=== PATIENT | female | born 1945 | race Caucasian/White ===

== ENCOUNTER 2016-11-17 18:20 | Emergency (ER) | payer MEDICARE, OTHER | END 2016-11-17 23:17 | disposition home or self-care (01) | LOC: ER 18:20 | DX: M54.40 Lumbago with sciatica, unspecified side (principal); Z88.1 Allergy status to other antibiotic agents; Z91.013 Allergy to seafood; Z79.899 Other long term (current) drug therapy; Z79.82 Long term (current) use of aspirin; Z79.84 Long term (current) use of oral hypoglycemic drugs; Z79.02 Long term (current) use of antithrombotics/antiplatelets | CPT/HCPCS: 96372; 99282-25; 99283 ==

== ENCOUNTER 2016-12-22 18:46 | Emergency (ER) | payer MEDICARE, OTHER | END 2016-12-23 00:09 | disposition home or self-care (01) | LOC: ER 18:46 | DX: M54.5 Low back pain (principal); I10 Essential (primary) hypertension; J44.9 Chronic obstructive pulmonary disease, unspecified; E11.9 Type 2 diabetes mellitus without complications; Z86.718 Personal history of other venous thrombosis and embolism; Z88.1 Allergy status to other antibiotic agents; Z91.018 Allergy to other foods ==